=== PATIENT | female | born 1965 | race Two or more races ===

== ENCOUNTER 2017-07-23 21:01 | Emergency (ER) | payer SELFPAY ==
[2017-07-23] MEDS ORDERED: ONDANSETRON 4 MG TAB.RAPDIS PO ONE (21:08)
[2017-07-23] MEDS ORDERED: ONDANSETRON HCL INJ/PF 4 MG/2 ML SDV IV ONE (21:51)
[2017-07-23] MEDS ORDERED: NORMAL SALINE 1000 ML 1,000 ML IV ONE (21:51)
[2017-07-23 22:43] LABS: ABSOLUTE BASOPHILS # (AUTO) 0.1 10^3/uL (0.0-0.2); ABSOLUTE EOSINOPHILS # (AUTO) 0.5 10^3/uL (0.0-0.6); ABSOLUTE MONOCYTES (AUTO) 0.9 10^3/uL (0.1-1.4); ABSOLUTE NEUT (AUTO) 4.6 10^3/uL (1.7-8.2); BASOPHILS % (AUTO) 0.6 % (0-2); EOSINOPHILS % (AUTO) 4.7 % (0-6); HEMATOCRIT 41.1 % (36.0-47.0); HEMOGLOBIN 13.9 g/dL (12.0-15.5); LYMPHOCYTES % (AUTO) 45.2 % (13-45); MEAN CORPUSCULAR HEMOGLOBIN 28.8 pg (27.0-33.4); MEAN CORPUSCULAR HGB CONC 33.9 g/dL (32.0-36.0); MEAN CORPUSCULAR VOLUME 85 fl (80-97); MONOCYTES % (AUTO) 7.8 % (3-13); PLATELET COUNT 261 10^3/uL (150-450); RED BLOOD COUNT 4.83 10^6/uL (3.72-5.28); RED CELL DISTRIBUTION WIDTH 13.2 % (11.5-14.0); SEGMENTED NEUTROPHILS % (AUTO) 41.7 % (42-78); TOTAL CELLS COUNTED % (AUTO) 100 %
[2017-07-23 22:50] LABS: ALANINE AMINOTRANSFERASE 34 U/L (9-52); ALBUMIN 4.3 g/dL (3.5-5.0); ALKALINE PHOSPHATASE 90 U/L (38-126); ANION GAP 10 (5-19); ASPARTATE AMINO TRANSFERASE 22 U/L (14-36); BILIRUBIN,DIRECT 0.3 mg/dL (0.0-0.4); BILIRUBIN,TOTAL 0.5 mg/dL (0.2-1.3); BLOOD UREA NITROGEN 24 mg/dL (7-20); CALCIUM 9.3 mg/dL (8.4-10.2); CARBON DIOXIDE 23 mmol/L (22-30); CHLORIDE 108 mmol/L (98-107); GLUCOSE 90 mg/dL (75-110); LIPASE 55.6 U/L (23-300); POTASSIUM 4.3 mmol/L (3.6-5.0); SODIUM 141.2 mmol/L (137-145); TOTAL PROTEIN 6.7 g/dL (6.3-8.2)
[2017-07-23 22:58] LABS: APPEARANCE,URINE CLEAR; BILIRUBIN,URINE NEGATIVE (NEGATIVE); COLOR,URINE YELLOW; GLUCOSE, URINE NEGATIVE (NEGATIVE); KETONES,URINE NEGATIVE (NEGATIVE); LEUKOCYTE ESTERASE,URINE NEGATIVE (NEGATIVE); NITRITE,URINE NEGATIVE (NEGATIVE); PROTEIN,URINE NEGATIVE (NEGATIVE); URINE SPECIFIC GRAVITY 1.028
[2017-07-23] MEDS ORDERED: ONDANSETRON ODT 4 MG TAB (6 TAB/ER DISP) PO PRN (23:09)
[2017-07-23] MEDS ORDERED: METOCLOPRAMIDE HCL INJ/PF 10 MG/2 ML SDV IV ONE (23:09)
--- NOTE | 2017-07-23 23:11 | ER Document Report ---
ED General - General Chief Complaint: Nausea/Vomiting/Diarrhea Stated Complaint: BODY PAIN,VOMITING Time Seen by Provider: 07/23/17 21:50 Notes: Patient is a 51-year-old female with medical history as recorded who presents with 24 hours of nausea, vomiting and diarrhea. Patient states that her symptoms started abruptly and have been ongoing since that time. She notes a mild, generalized, cramping abdominal pain that is intermittent, usually most intense prior to an episode of vomiting. She has not tried anything to improve her symptoms at home. She states any attempt at taking oral intake worsens her symptoms. She is uncertain of whether or not she has had sick contacts. She denies a history of similar symptoms in the past. She has not seen her primary doctor regarding today's concerns. She states that her main concern this as she has been unable to tolerate even water at home prompting concerns of dehydration. She denies any shortness of breath, lightheadedness, chest pain or focal abdominal pain. She does report that she has had a mild cough. TRAVEL OUTSIDE OF THE [place] IN LAST 30 DAYS: No - Related Data Allergies/Adverse Reactions: cephalexin monohydrate [From Keflex] Allergy (Intermediate, Verified 06/24/12 02 :51) Rash, swelling Past Medical History - General Information source: Patient - Social History Smoking Status: Former Smoker Frequency of alcohol use: None Lives with: Alone Family History: Reviewed & Not Pertinent Patient has suicidal ideation: No Patient has homicidal ideation: No Pulmonary Medical History: Reports: Hx Asthma, Hx Bronchitis, Hx Pneumonia Neurological Medical History: Reports: Hx Migraine Renal/ Medical History: Denies: Hx Peritoneal Dialysis Malignancy Medical History: Reports: Hx Cervical Cancer - abnormal cells Musculoskeltal Medical History: Reports Hx Arthritis - degenerative arthritis, Reports Hx Musculoskeletal Deformity, Reports Hx Musculoskeletal Trauma Psychiatric Medical History: Reports: Hx Bipolar Disorder, Hx Depression Past Surgical History: Reports: Hx Appendectomy, Hx Cholecystectomy, Hx Hysterectomy, Hx Orthopedic Surgery - right knee; back; left shoulder, Hx Tonsillectomy - Immunizations Immunizations up to date: Yes Hx Diphtheria, Pertussis, Tetanus Vaccination: Yes Hx Pneumococcal Vaccination: 06/24/12 Review of Systems - Review of Systems Notes: Constitutional: Positive for fever. HENT: Negative for sore throat. Eyes: Negative for visual changes. Cardiovascular: Negative for chest pain. Respiratory: Negative for shortness of breath. Positive for cough Gastrointestinal: Positive for abdominal cramping, vomiting and diarrhea Genitourinary: Negative for dysuria. Musculoskeletal: Negative for back pain. Skin: Negative for rash. Neurological: Negative for headaches, weakness or numbness. 10 point ROS negative except as marked above and in HPI. Physical Exam - Vital signs Vitals: Temp Pulse Resp BP Pulse Ox 98.1 F 82 19 109/66 97 07/23/17 21:16 07/23/17 21:16 07/23/17 21:16 07/23/17 21:16 07/23/17 21:16 Interpretation: Normal Notes: PHYSICAL EXAMINATION: GENERAL: Appears somewhat uncomfortable but in no acute distress.. HEAD: Atraumatic, normocephalic. EYES: Pupils equal round and reactive to light, extraocular movements intact, sclera anicteric, conjunctiva are normal. ENT: nares patent, oropharynx clear without exudates. Dry mucous membranes. NECK: Normal range of motion, supple without lymphadenopathy LUNGS: Breath sounds clear to auscultation bilaterally and equal. No wheezes rales or rhonchi. HEART: Regular rate and rhythm without murmurs ABDOMEN: Soft, nontender, normoactive bowel sounds. No guarding, no rebound. No masses appreciated. EXTREMITIES: Normal range of motion, no pitting or edema. No cyanosis. NEUROLOGICAL: No focal neurological deficits. Moves all extremities spontaneously and on command. PSYCH: Normal mood, normal affect. SKIN: Warm, Dry, normal turgor, no rashes or lesions noted. Course - Re-evaluation Re-evalutation: 07/23/17 23:10 Presentation of an overall well-appearing patient in no acute distress with complaints of nausea, vomiting, diarrhea. This is consistent with likely viral gastroenteritis. Patient has no abdominal tenderness on exam and specifically no tenderness in the RLQ, LLQ, RUQ. Patient is already status post cholecystectomy and appendectomy. Overall well hydrated on exam. Able to tolerate oral intake here in the emergency department. Low clinical suspicion for any acute life-threatening etiology based on exam and history including SBO , mesenteric ischemia, nephrolithiasis, or pylonephritis. CMP without evidence of acute hepatitis or significant dehydration. At this time will discharge with return precautions and follow-up recommendations. Verbal discharge instructions given a the bedside and opportunity for questions given. Medication warnings reviewed. Patient is in agreement with this plan and has verbalized understanding of return precautions and the need for primary care follow-up in the next 24-72 hours. - Vital Signs Vital signs: Temp Pulse Resp BP Pulse Ox 98.0 F 82 15 104/66 98 07/24/17 00:30 07/23/17 21:16 07/24/17 00:28 07/24/17 00:28 07/24/17 00:28 - Laboratory Result Diagrams: 07/23/17 22:03 07/23/17 22:03 Laboratory results interpreted by me: 07/23/17 07/23/17 07/23/17 22:03 22:03 22:47 WBC 11.0 H Seg Neutrophils % 41.7 L Lymphocytes % 45.2 H Absolute Lymphocytes 5.0 H Chloride 108 H BUN 24 H Urine Blood MODERATE H Urine Urobilinogen 2.0 H Discharge - Discharge Clinical Impression: Nausea vomiting and diarrhea, Dehydration, Abdominal cramping Condition: Good Disposition: HOME, SELF-CARE Additional Instructions: Your symptoms are likely due to a viral illness and should resolve in the next several days. You can take [id number] loperamide also known as Imodium as needed for diarrhea per box instructions. Continue to stay hydrated with plenty of solution such as Gatorade or Pedialyte. You are being prescribed Zofran to take as needed for nausea and vomiting. Please return if you develop severe abdominal pain, pass out, become unable to tolerate any oral fluids for 12 more hours, or any other symptoms that are concerning to you. Forms: Return to Work
[2017-07-24 00:56] VITALS: BP 104/66
== END 2017-07-24 00:30 | disposition home or self-care (01) ==
LOC: ER 21:01
DX: R11.2 Nausea with vomiting, unspecified (principal); R19.7 Diarrhea, unspecified; E86.0 Dehydration; R10.84 Generalized abdominal pain; Z88.3 Allergy status to other anti-infective agents; Z87.891 Personal history of nicotine dependence; Z90.49 Acquired absence of other specified parts of digestive tract; Z90.710 Acquired absence of both cervix and uterus; Z85.41 Personal history of malignant neoplasm of cervix uteri
CPT/HCPCS: 99284; 96361; 96374; 96375; 36415; 83690; 85025; 80053; 81001; J2765; J2405; J7030

== ENCOUNTER 2017-08-22 12:21 | Emergency (ER) | payer SELFPAY ==
--- NOTE | 2017-08-22 13:08 | ER Document Report ---
HPI - HPI Patient complains to provider of: fell Quality of pain: Throbbing Pain Level: 4 Context: 51 yo female tripped over dogs and fell onto right knee which sanjana her right hip and low back at 8 am. NO radicuopathy. Associated Symptoms: None Exacerbated by: Movement Relieved by: Denies - ROS ROS below otherwise negative: Yes Systems Reviewed and Negative: Yes All other systems reviewed and negative - REPRODUCTIVE Reproductive: DENIES: : Past Medical History - General Information source: Patient - Social History Smoking Status: Former Smoker Frequency of alcohol use: None Drug Abuse: None Lives with: Family Family History: Reviewed & Not Pertinent Pulmonary Medical History: Reports: Hx Asthma, Hx Bronchitis, Hx Pneumonia Neurological Medical History: Reports: Hx Migraine Renal/ Medical History: Denies: Hx Peritoneal Dialysis Malignancy Medical History: Reports: Hx Cervical Cancer - abnormal cells Musculoskeltal Medical History: Reports Hx Arthritis - degenerative arthritis, Reports Hx Musculoskeletal Deformity, Reports Hx Musculoskeletal Trauma Psychiatric Medical History: Reports: Hx Bipolar Disorder, Hx Depression Past Surgical History: Reports: Hx Appendectomy, Hx Cholecystectomy, Hx Hysterectomy, Hx Orthopedic Surgery - right knee; back; left shoulder, Hx Tonsillectomy - Immunizations Immunizations up to date: Yes Hx Diphtheria, Pertussis, Tetanus Vaccination: Yes Hx Pneumococcal Vaccination: 06/24/12 Vertical Provider Document - CONSTITUTIONAL Agree With Documented VS: Yes Exam Limitations: No Limitations General Appearance: Mild Distress - INFECTION CONTROL TRAVEL OUTSIDE OF THE [place] IN LAST 30 DAYS: No - HEENT HEENT: Normocephalic - NECK Neck: Supple - BACK Back: Normal Inspection - tender right scarum and right lateral hip - MUSCULOSKELETAL/EXTREMETIES Musculoskeletal/Extremeties: Tender - see above Course - Re-evaluation Re-evalutation: 08/22/17 14:35 xray negative per rad - Vital Signs Vital signs: Temp Pulse Resp BP Pulse Ox 98.6 F 65 18 118/81 97 08/22/17 12:46 08/22/17 12:46 08/22/17 12:46 08/22/17 12:46 08/22/17 12:46 Discharge - Discharge Clinical Impression: right hip pain after fall Condition: Good Disposition: HOME, SELF-CARE Instructions: Contusion ([facility]), Ibuprofen (General) ([facility]), Low Back Pain ([facility]), Oral Narcotic Medication ([facility]) Additional Instructions: use the cane motrin hydrocodone for pain warm compress crutches Prescriptions: Hydrocodone Bit/Acetaminophen [Hydrocodon-Acetaminophen 5-325] 1 each PO Q4HP PRN #15 tablet PRN Reason: Ibuprofen [Motrin 800 mg Tablet] 800 mg PO Q8HP PRN #30 tablet PRN Reason: Forms: Return to Work Referrals: FERNIE MOORE MD [ACTIVE STAFF] - Follow up as needed
[2017-08-22] MEDS ORDERED: IBUPROFEN 800 MG TABLET PO ONE (13:24)
[2017-08-22] MEDS ORDERED: ONDANSETRON 4 MG TAB.RAPDIS PO ONE (13:25)
[2017-08-22] MEDS ORDERED: HYDROCODONE/ACETAMINOPHEN 5-325 MG TABLET PO ONE (13:25)
--- NOTE | 2017-08-22 14:22 | RADIOLOGY REPORT (SQ) ---
EXAM DESCRIPTION: HIP RIGHT AP/LATERAL COMPLETED DATE/TIME: 08/22/2017 2:11 pm REASON FOR STUDY: fall COMPARISON: 02/01/2012 NUMBER OF VIEWS: Two views. TECHNIQUE: AP pelvis and additional frog-leg view of the right hip. LIMITATIONS: None. FINDINGS: MINERALIZATION: Normal. RIGHT HIP: No fracture or dislocation. No worrisome bone lesions. LEFT HIP: No fracture or dislocation. No worrisome bone lesions. PUBIS AND ISCHIUM: No fracture. PELVIS: No fracture. SACRUM: No fracture or dislocation. No worrisome bone lesions. LOWER LUMBAR SPINE: No fracture or dislocation. No worrisome bone lesions. No significant disc disea se. SOFT TISSUES: No findings. OTHER: No other significant finding. IMPRESSION: NO RADIOGRAPHIC EVIDENCE OF ACUTE INJURY. TECHNICAL DOCUMENTATION: JOB ID: [id number] [employer]- All Rights Reserved Reading location - IP/workstation name: [email or web address]
[2017-08-22 14:55] VITALS: BP 114/84
== END 2017-08-22 15:00 | disposition home or self-care (01) ==
LOC: ER 12:21
DX: M25.551 Pain in right hip (principal); M54.5 Low back pain; W01.0XXA Fall on same level from slipping, tripping and stumbling without subsequent striking against object, initial encounter; Z90.49 Acquired absence of other specified parts of digestive tract; Z90.710 Acquired absence of both cervix and uterus
CPT/HCPCS: 99283; 73502; S0119

== ENCOUNTER 2017-09-29 14:33 | Emergency (ER) | payer SELFPAY ==
[2017-09-29 14:43] VITALS: BP 104/77
[2017-09-29] MEDS ORDERED: DICYCLOMINE HCL 20 MG TABLET PO ONE (15:37)
--- NOTE | 2017-09-29 15:38 | ER Document Report ---
ED Medical Screen (RME) - General Chief Complaint: Abdominal Pain Stated Complaint: VAGINAL ITCHING Time Seen by Provider: 09/29/17 15:34 TRAVEL OUTSIDE OF THE [place] IN LAST 30 DAYS: No - HPI Notes: 09/29/17 15:37 Abdominal cramping vaginal itching - Related Data Allergies/Adverse Reactions: cephalexin monohydrate [From Keflex] Allergy (Intermediate, Verified 09/29/17 15 :24) Rash, swelling Past Medical History - Social History Chew tobacco use (# tins/day): No Frequency of alcohol use: None Drug Abuse: None Pulmonary Medical History: Reports: Hx Asthma, Hx Bronchitis, Hx Pneumonia Neurological Medical History: Reports: Hx Migraine Renal/ Medical History: Denies: Hx Peritoneal Dialysis Malignancy Medical History: Reports: Hx Cervical Cancer - abnormal cells Musculoskeltal Medical History: Reports Hx Arthritis - degenerative arthritis, Reports Hx Musculoskeletal Deformity, Reports Hx Musculoskeletal Trauma Psychiatric Medical History: Reports: Hx Bipolar Disorder, Hx Depression Past Surgical History: Reports: Hx Appendectomy, Hx Cholecystectomy, Hx Hysterectomy, Hx Orthopedic Surgery - right knee; back; left shoulder, Hx Tonsillectomy - Immunizations Immunizations up to date: Yes Hx Diphtheria, Pertussis, Tetanus Vaccination: Yes Review of Systems - Review of Systems Gastrointestinal: Abdominal pain Genitourinary: Other - Vaginal itching Physical Exam - Vital signs Vitals: Temp Pulse Resp BP Pulse Ox 98.8 F 81 20 104/77 98 09/29/17 14:41 09/29/17 14:41 09/29/17 14:41 09/29/17 14:41 09/29/17 14:41 - General General appearance: Appears well In distress: None - Abdominal Inspection: Normal Distension: No distension Bowel sounds: Normal Tenderness: Nontender Course - Vital Signs Vital signs: Temp Pulse Resp BP Pulse Ox 98.8 F 81 20 104/77 98 09/29/17 14:41 09/29/17 14:41 09/29/17 14:41 09/29/17 14:41 09/29/17 14:41
[2017-09-29 17:02] LABS: APPEARANCE,URINE SLIGHTLY-CLOUDY; BILIRUBIN,URINE NEGATIVE (NEGATIVE); COLOR,URINE YELLOW; GLUCOSE, URINE NEGATIVE (NEGATIVE); KETONES,URINE NEGATIVE (NEGATIVE); LEUKOCYTE ESTERASE,URINE TRACE (NEGATIVE); NITRITE,URINE NEGATIVE (NEGATIVE); PROTEIN,URINE NEGATIVE (NEGATIVE); URINE SPECIFIC GRAVITY 1.025
[2017-09-29 17:05] LABS: ALANINE AMINOTRANSFERASE 28 U/L (9-52); ALBUMIN 4.4 g/dL (3.5-5.0); ALKALINE PHOSPHATASE 89 U/L (38-126); ANION GAP 10 (5-19); ASPARTATE AMINO TRANSFERASE 19 U/L (14-36); BILIRUBIN,DIRECT 0.2 mg/dL (0.0-0.4); BILIRUBIN,TOTAL 0.4 mg/dL (0.2-1.3); BLOOD UREA NITROGEN 21 mg/dL (7-20); CALCIUM 9.3 mg/dL (8.4-10.2); CARBON DIOXIDE 27 mmol/L (22-30); CHLORIDE 109 mmol/L (98-107); GLUCOSE 87 mg/dL (75-110); POTASSIUM 4.5 mmol/L (3.6-5.0); SODIUM 146.4 mmol/L (137-145); TOTAL PROTEIN 7.4 g/dL (6.3-8.2)
[2017-09-29 18:20] LABS: T.VAGINALIS (WET MOUNT) NO TRICHOMONAS SEEN; WBCS (WET MOUNT) RARE WBCS SEEN; YEAST (WET MOUNT) NO YEAST SEEN
[2017-09-29] MEDS ORDERED: SULFAMETHOXAZOLE/TRIMETHOPRIM 800-160 MG TABLET PO ONE (18:43)
[2017-09-29] MEDS ORDERED: PHENAZOPYRIDINE HCL 200 MG TABLET PO ONE (18:43)
--- NOTE | 2017-09-29 18:43 | ER Document Report ---
HPI - HPI Pain Level: 5 Context: Patient is a 51-year-old female presents emergency room with a chief complaint of urinary urgency, frequency and itching. Patient states that she denies any vaginal pain, vaginal discharge or labial irritation. She denies any suprapubic pain. Denies any fevers or chills, flank pain or back pain. - REPRODUCTIVE Reproductive: DENIES: : - DERM Skin Color: Normal Past Medical History - Social History Smoking Status: Current Some Day Smoker Chew tobacco use (# tins/day): No Frequency of alcohol use: None Drug Abuse: None Family History: Reviewed & Not Pertinent Patient has suicidal ideation: No Patient has homicidal ideation: No Pulmonary Medical History: Reports: Hx Asthma, Hx Bronchitis, Hx Pneumonia Neurological Medical History: Reports: Hx Migraine Renal/ Medical History: Denies: Hx Peritoneal Dialysis Malignancy Medical History: Reports: Hx Cervical Cancer - abnormal cells Musculoskeltal Medical History: Reports Hx Arthritis - degenerative arthritis, Reports Hx Musculoskeletal Deformity, Reports Hx Musculoskeletal Trauma Psychiatric Medical History: Reports: Hx Bipolar Disorder, Hx Depression Past Surgical History: Reports: Hx Appendectomy, Hx Cholecystectomy, Hx Hysterectomy, Hx Orthopedic Surgery - right knee; back; left shoulder, Hx Tonsillectomy - Immunizations Immunizations up to date: Yes Hx Diphtheria, Pertussis, Tetanus Vaccination: Yes Hx Pneumococcal Vaccination: 06/24/12 Vertical Provider Document - CONSTITUTIONAL Agree With Documented VS: Yes Notes: PHYSICAL EXAM GENERAL: Alert, interacts well. LUNGS: Clear to auscultation bilaterally, no wheezes, rales, or rhonchi. No respiratory distress. HEART: Regular rate and rhythm. No murmurs, gallops, or rubs. ABDOMEN: Soft, nondistended, nontender. No guarding, rebound, or rigidity.. Bowel sounds present in all 4 quadrants. FEMALE : Normal external exam. No evidence of lesions, lacerations, bruising or vesicles. Speculum exam normal cervix closed. No evidence of vaginal discharge with odor. No evidence of lesions. No vaginal bleeding. Bimanual exam normal no cervical motion tenderness. No adnexal mass or adnexal tenderness. EXTREMITIES: Moves all 4 extremities spontaneously. No edema, radial and dorsalis pedis pulses 2/4 bilaterally. No cyanosis. NEUROLOGICAL: Alert and oriented x4. Normal speech. PSYCH: Normal affect, normal mood. SKIN: Warm, dry, normal turgor. No rashes or lesions noted. - INFECTION CONTROL TRAVEL OUTSIDE OF THE [place] IN LAST 30 DAYS: No Course - Re-evaluation Re-evalutation: 09/29/17 18:42 Patient presents with symptoms consistent with an acute cystitis. Vitals wnl. No history of fever, flank pain, or constitution symptoms to suggest ascending infection at this time. Patient is well in appearance, tolerating oral intake without difficulty. No focal abdominal tenderness to suggest acute appendicitis , biliary pathology, acute pancreatitis, tubo-ovarian abscesses, or pelvic inflammatory disease. Patient will be started on antibiotics at this time. A culture has been sent. They will be discharged with return precautions and follow-up recommendations. - Vital Signs Vital signs: Temp Pulse Resp BP Pulse Ox 98.8 F 81 20 104/77 98 09/29/17 14:41 09/29/17 14:41 09/29/17 14:41 09/29/17 14:41 09/29/17 14:41 - Laboratory Result Diagrams: 09/29/17 16:15 Laboratory results interpreted by me: 09/29/17 09/29/17 16:15 16:15 Sodium 146.4 H Chloride 109 H BUN 21 H Urine Blood MODERATE H Urine Urobilinogen 2.0 H Ur Leukocyte Esterase TRACE H Discharge - Discharge Clinical Impression: UTI (urinary tract infection) Condition: Good Disposition: HOME, SELF-CARE Additional Instructions: Your urine shows findings consistent with a urinary tract infection. Please take all the antibiotics as directed even if your symptoms have improved. Please follow-up with your primary care physician as needed. Return to emergency room if you develop fever >101F, persistent vomiting, become lethargic , have severe pain in your sides, or any other symptoms that are concerning to you. Prescriptions: Phenazopyridine HCl [Pyridium 200 mg Tablet] 200 mg PO TID #15 tablet Sulfamethoxazole/Trimethoprim [Bactrim Ds Tablet] 1 each PO BID #6 tablet Forms: Return to Work
[2017-09-29 19:48] LABS: CHLAM PCR NOT DETECTED (NOT DETECT); GON PCR NOT DETECTED (NOT DETECT)
== END 2017-09-29 18:55 | disposition home or self-care (01) ==
LOC: ER 14:33
DX: N39.0 Urinary tract infection, site not specified (principal); R39.15 Urgency of urination; R35.0 Frequency of micturition; F17.200 Nicotine dependence, unspecified, uncomplicated; J45.909 Unspecified asthma, uncomplicated
CPT/HCPCS: 99283; 36415; 87210; 84703; 80053; 81001; 87491; 87591; J3490 ×2

== ENCOUNTER 2019-09-27 14:48 | Emergency (ER) | payer SELFPAY ==
[2019-09-27 16:57] VITALS: BP 132/81
[2019-09-27] MEDS ORDERED: CLINDAMYCIN HCL 150 MG CAPSULE PO ONE (17:01)
[2019-09-27] MEDS ORDERED: PREDNISONE 20 MG TABLET PO ONE (17:01)
--- NOTE | 2019-09-27 17:07 | ER Document Report ---
HPI - HPI Patient complains to provider of: Skin rash Time Seen by Provider: 09/27/19 16:34 Onset: Yesterday Onset/Duration: Worse Quality of pain: Achy Pain Level: 2 Context: Patient states that she recently bought a new bed frame and put it up in her house. Patient states that yesterday she woke up after using the bed frame for the first night and had multiple zacarias on her that are suspicious for bedbug bites. Patient states that she has been continually scratching and she has expanding redness around some of the lesions. Patient reports nausea and diarrhea. Patient denies any fever. She has started to treat her home and has called an casual shoe inspector. Associated Symptoms: Nausea, Other - Insect bites. denies: Fever, Vomiting Exacerbated by: Denies Relieved by: Denies Similar symptoms previously: No Recently seen / treated by doctor: No - ROS ROS below otherwise negative: Yes Systems Reviewed and Negative: Yes All other systems reviewed and negative - CONSTITUTIONAL Constitutional: DENIES: Fever, Chills - NEURO Neurology: DENIES: Headache - RESPIRATORY Respiratory: DENIES: Coughing - GASTROINTESTINAL Gastrointestinal: REPORTS: Nausea, Diarrhea. DENIES: Patient vomiting - REPRODUCTIVE Reproductive: DENIES: : - MUSCULOSKELETAL Musculoskeletal: REPORTS: Extremity pain - DERM Skin Color: Erythema Skin Problems: Rash Past Medical History - General Information source: Patient - Social History Smoking Status: Former Smoker Frequency of alcohol use: Occasional Drug Abuse: None Occupation: None Family History: Reviewed & Not Pertinent Patient has homicidal ideation: No Pulmonary Medical History: Reports: Hx Asthma, Hx Bronchitis, Hx Pneumonia Neurological Medical History: Reports: Hx Migraine Renal/ Medical History: Denies: Hx Peritoneal Dialysis Malignancy Medical History: Reports: Hx Cervical Cancer - abnormal cells Musculoskeletal Medical History: Reports Hx Arthritis - degenerative arthritis, Reports Hx Musculoskeletal Deformity, Reports Hx Musculoskeletal Trauma Psychiatric Medical History: Reports: Hx Bipolar Disorder, Hx Depression Past Surgical History: Reports: Hx Appendectomy, Hx Cholecystectomy, Hx Hysterectomy, Hx Orthopedic Surgery - right knee; back; left shoulder, Hx Tonsillectomy - Immunizations Immunizations up to date: Yes Hx Diphtheria, Pertussis, Tetanus Vaccination: Yes Hx Pneumococcal Vaccination: 06/24/12 Vertical Provider Document - CONSTITUTIONAL Agree With Documented VS: Yes Exam Limitations: No Limitations General Appearance: WD/WN, No Apparent Distress - INFECTION CONTROL TRAVEL OUTSIDE OF THE [place] IN LAST 30 DAYS: No - HEENT HEENT: Atraumatic, Normocephalic - NECK Neck: Normal Inspection, Supple. negative: Lymphadenopathy-Left, Lymphadenopathy-Right - RESPIRATORY Respiratory: Breath Sounds Normal, No Respiratory Distress - CARDIOVASCULAR Cardiovascular: Regular Rate, Regular Rhythm - MUSCULOSKELETAL/EXTREMETIES Musculoskeletal/Extremeties: MAEW, FROM - NEURO Level of Consciousness: Awake, Alert, Appropriate Motor/Sensory: No Motor Deficit - DERM Integumentary: Warm, Rash - Multiple erythematous papular lesions to trunk and extremities, patient with erythema surrounding lesions to medial left elbow Course - Re-evaluation Re-evalutation: 09/27/19 17:02 Patient with multiple erythematous lesions distributed to trunk and extremities that do look suspicious for bedbug bites. Patient has areas to the left upper arm with surrounding erythema worrisome for developing cellulitis. Patient continually scratching at her skin. Patient encouraged to minimize traumatizing the skin to prevent potential worsening of the cellulitis. - Vital Signs Vital signs: Temp Pulse Resp BP Pulse Ox 99.1 F 82 18 132/81 H 98 09/27/19 16:43 09/27/19 16:43 09/27/19 16:43 09/27/19 16:43 09/27/19 16:43 Discharge - Discharge Clinical Impression: Insect bite Qualifiers: Encounter type: initial encounter Site of insect bite: unspecified site Qualified Code(s): W57.XXXA - Bitten or stung by nonvenomous insect and other nonvenomous arthropods, initial encounter Cellulitis Qualifiers: Site of cellulitis: extremity Site of cellulitis of extremity: upper extremity Laterality: left Qualified Code(s): L03.114 - Cellulitis of left upper limb Condition: Stable Disposition: HOME, SELF-CARE Instructions: Cellulitis ([facility]), Clindamycin ([facility]), Swollen Insect Bite or Sting ([facility]) Additional Instructions: Return immediately for any new or worsening symptoms Followup with your primary care provider, call tomorrow to make a followup appointment Avoid scratching at the skin Prescriptions: Clindamycin HCl 300 mg PO QID #28 capsule Prednisone [Deltasone 20 mg Tablet] 3 tab PO DAILY 4 Days #12 tablet Hydroxyzine Pamoate [Vistaril 50 mg Capsule] 50 mg PO TID PRN #15 capsule PRN Reason: Referrals: [facility] [Provider Group] - Follow up as needed
== END 2019-09-27 17:46 | disposition home or self-care (01) ==
LOC: ER 14:48
DX: L03.114 Cellulitis of left upper limb (principal); T14.8XXA Other injury of unspecified body region, initial encounter; W57.XXXA Bitten or stung by nonvenomous insect and other nonvenomous arthropods, initial encounter; R11.0 Nausea; R19.7 Diarrhea, unspecified; J45.909 Unspecified asthma, uncomplicated; Z87.891 Personal history of nicotine dependence
CPT/HCPCS: 99282; J7512

== ENCOUNTER 2019-10-24 11:28 | Emergency (ER) | payer SELFPAY ==
[2019-10-24 11:34] VITALS: BP 122/84
--- NOTE | 2019-10-24 14:09 | ER Document Report ---
ED Fever - General Chief Complaint: Fever Stated Complaint: FEVER,COUGH,BODYACHES,EAR PAIN Time Seen by Provider: 10/24/19 13:39 Mode of Arrival: Ambulatory Information source: Patient Notes: 53-year-old female past medical history significant for asthma presents to the emergency room complaining of a cough x5 days. States she had diarrhea on Wednesday that his symptoms resolved. Started complaining of right ear pain that came on suddenly today at work. States she had a negative cover test in June. A positive flu in July and a negative COVID in July. States she been running a low-grade fever. She denies any recent travel. No known COVID-19 exposure. Has been taking ibuprofen along with [id number] Tylenol Cold and flu without relief. TRAVEL OUTSIDE OF THE [place] IN LAST 30 DAYS: No - Related Data Allergies/Adverse Reactions: cephalexin monohydrate [From Keflex] Allergy (Intermediate, Verified 10/24/19 14:11) Rash, swelling Past Medical History - General Information source: Patient - Social History Smoking Status: Never Smoker Frequency of alcohol use: None Drug Abuse: None Family History: Reviewed & Not Pertinent Pulmonary Medical History: Reports: Hx Asthma, Hx Bronchitis, Hx Pneumonia Neurological Medical History: Reports: Hx Migraine Renal/ Medical History: Denies: Hx Peritoneal Dialysis Malignancy Medical History: Reports: Hx Cervical Cancer - abnormal cells Musculoskeletal Medical History: Reports Hx Arthritis - degenerative arthritis, Reports Hx Musculoskeletal Deformity, Reports Hx Musculoskeletal Trauma Psychiatric Medical History: Reports: Hx Bipolar Disorder, Hx Depression Past Surgical History: Reports: Hx Appendectomy, Hx Cholecystectomy, Hx Hysterectomy, Hx Orthopedic Surgery - right knee; back; left shoulder, Hx Tonsillectomy - Immunizations Immunizations up to date: Yes Hx Diphtheria, Pertussis, Tetanus Vaccination: Yes Hx Pneumococcal Vaccination: 06/24/12 Review of Systems - Review of Systems Constitutional: Fever EENT: Ear pain Cardiovascular: No symptoms reported Respiratory: Cough. denies: Short of breath, Wheezing Gastrointestinal: Diarrhea. denies: Abdominal pain, Nausea, Vomiting Genitourinary: No symptoms reported Musculoskeletal: No symptoms reported Skin: No symptoms reported Neurological/Psychological: No symptoms reported -: Yes All other systems reviewed and negative Physical Exam - Vital signs Vitals: Temp Pulse Resp BP Pulse Ox 98.2 F 85 20 122/84 99 10/24/19 11:33 10/24/19 11:33 10/24/19 11:33 10/24/19 11:33 10/24/19 11:33 - General General appearance: Appears well, Alert In distress: Mild - HEENT Head: Normocephalic Eyes: Normal Conjunctiva: Normal Cornea: Normal Extraocular movements intact: Yes External canal: Cerumen impaction - Right ear with severe cerumen impaction. Tympanic membrane: Loss of landmarks Hearing loss: No: Left, Right Sinus: Normal Nasal: Normal Pharynx: Normal Neck: Normal - Respiratory Respiratory status: No respiratory distress Chest status: Nontender Breath sounds: Normal Chest palpation: Normal - Cardiovascular Rhythm: Regular Heart sounds: Normal auscultation Murmur: No - Neurological Neuro grossly intact: Yes Cognition: Normal Orientation: AAOx4 Shane Coma Scale Eye Opening: Spontaneous [place] Coma Scale Verbal: Oriented [place] Coma Scale Motor: Obeys Commands [place] Coma Scale Total: 15 Speech: Normal Motor strength normal: LUE, RUE, LLE, RLE Sensory: Normal - Skin Skin Temperature: Warm Skin Moisture: Dry Skin Color: Normal Course - Re-evaluation Re-evalutation: 10/24/19 15:15 Was notified by nursing staff that patient was requesting to be seen by physician. Patient stated she did not feel that she was getting good care. Patient stated that "I told her that nothing could be done". Which is not what was discussed. Discussed with patient that we will get a chest x-ray for her cough, will attempt to clean her ears but was concerned about the thickness of the wax and that we might not be able to get much out. Did discuss case with Dr. Mata who recommended that we have one the nurses attempt to flush out the patient's ear. Patient also refused her chest x-ray. Patient would not give a reason for refusing her chest x-ray. Patient then refused to allow the nurse to attempt to clean the wax out of her ear. Went to discuss AMA with patient and she was requesting to leave AGAINST MEDICAL ADVICE. Patient refused to allow me to talk to her. She again stated "you told me you cannot do anything for me" when attempting to re-explain to the patient what I initially had discussed with her about a chest x-ray and cleaning her ears she said "I do not want to hear it and she yelled at me demanding that I leave her room" was unable to discuss AMA risks with patient. Patient did sign AMA forms although she was not counseled by the provider. She was counseled that she can return anytime to complete her treatment. 10/25/19 01:00 - Vital Signs Vital signs: Temp Pulse Resp BP Pulse Ox 98.2 F 85 20 122/84 99 10/24/19 11:33 10/24/19 11:33 10/24/19 11:33 10/24/19 11:33 10/24/19 11:33 Discharge - Discharge Clinical Impression: Right ear pain, Cough, Right ear impacted cerumen, Left against medical advice Condition: Stable Disposition: AGAINST MEDICAL ADVICE
== END 2019-10-24 15:30 | disposition left against medical advice (07) ==
LOC: ER 11:28
DX: R05 Cough (principal); H61.21 Impacted cerumen, right ear; H92.01 Otalgia, right ear; R50.9 Fever, unspecified; R19.7 Diarrhea, unspecified; J45.909 Unspecified asthma, uncomplicated; Z87.01 Personal history of pneumonia (recurrent); Z88.1 Allergy status to other antibiotic agents; Z53.20 Procedure and treatment not carried out because of patient's decision for unspecified reasons
CPT/HCPCS: 99281

== ENCOUNTER 2019-12-08 13:53 | Emergency (ER) | payer SELFPAY ==
--- NOTE | 2019-12-08 15:24 | ER Document Report ---
ED Medical Screen (RME) - General Chief Complaint: Cough Stated Complaint: HEADACHE/DIARRHEA/SORE THROAT/COUGH Time Seen by Provider: 12/08/19 15:18 Mode of Arrival: Ambulatory Information source: Patient Notes: HPI; 53-year-old female presents to the emergency room complaining of sinus headache with nasal congestion and cough. Symptoms started 7 days ago. Got worse today. Started with nausea, sore throat, diarrhea yesterday. 2 episodes yesterday 3 episodes today. States feels worse today. She denies any recent travel. No known COVID-19 exposure however a family member tested positive that has had contact with other family members that she is also had contact with. PE: Alert and oriented x3. Mild distress noted. Lungs: Scattered rhonchi and wheezes. No rales. Heart: Regular rate rhythm without murmurs, rubs, gallops. I have greeted and performed a rapid initial assessment of this patient. A comprehensive ED assessment and evaluation of the patient, analysis of test results and completion of the medical decision making process will be conducted by additional ED providers. I have specifically instructed the patient or family members with the patient to immediately return to any nursing staff should anything change in the patient's condition or with their chief complaint. TRAVEL OUTSIDE OF THE [place] IN LAST 30 DAYS: No - Related Data Allergies/Adverse Reactions: cephalexin monohydrate [From Keflex] Allergy (Intermediate, Verified 10/24/19 14:11) Rash, swelling Past Medical History Pulmonary Medical History: Reports: Hx Asthma, Hx Bronchitis, Hx Pneumonia Neurological Medical History: Reports: Hx Migraine Renal/ Medical History: Denies: Hx Peritoneal Dialysis Malignancy Medical History: Reports: Hx Cervical Cancer - abnormal cells Musculoskeltal Medical History: Reports Hx Arthritis - degenerative arthritis, Reports Hx Musculoskeletal Deformity, Reports Hx Musculoskeletal Trauma Psychiatric Medical History: Reports: Hx Bipolar Disorder, Hx Depression Past Surgical History: Reports: Hx Appendectomy, Hx Cholecystectomy, Hx Hysterectomy, Hx Orthopedic Surgery - right knee; back; left shoulder, Hx Tonsillectomy - Immunizations Immunizations up to date: Yes Hx Diphtheria, Pertussis, Tetanus Vaccination: Yes Physical Exam - Vital signs Vitals: Temp Pulse Resp BP Pulse Ox 98.4 F 75 20 101/69 100 12/08/19 14:35 12/08/19 14:35 12/08/19 14:35 12/08/19 14:35 12/08/19 14:35 Course - Vital Signs Vital signs: Temp Pulse Resp BP Pulse Ox 98.4 F 75 20 101/69 100 12/08/19 14:35 12/08/19 14:35 12/08/19 14:35 12/08/19 14:35 12/08/19 14:35
[2019-12-08] MEDS ORDERED: ONDANSETRON HCL INJ/PF 4 MG/2 ML SDV IV ONE (16:11)
[2019-12-08] MEDS ORDERED: NORMAL SALINE 1000 ML 1,000 ML IV ONE (16:12)
[2019-12-08] MEDS ORDERED: GUAIFENESIN SYRP 200 MG/10 ML UDC PO ONE (16:12)
--- NOTE | 2019-12-08 16:27 | RADIOLOGY REPORT (SQ) ---
EXAM DESCRIPTION: CHEST SINGLE VIEW IMAGES COMPLETED DATE/TIME: 12/08/2019 4:15 pm REASON FOR STUDY: chest pain COMPARISON: 05/30/2012 EXAM PARAMETERS: NUMBER OF VIEWS: One view. TECHNIQUE: Single frontal radiographic view of the chest acquired. RADIATION DOSE: NA LIMITATIONS: None. FINDINGS: LUNGS AND PLEURA: No opacities, masses or pneumothorax. No pleural effusion. MEDIASTINUM AND HILAR STRUCTURES: No masses. Contour normal. HEART AND VASCULAR STRUCTURES: Heart normal in size. Normal vasculature. BONES: No acute findings. HARDWARE: Left shoulder arthroplasty. OTHER: No other significant finding. IMPRESSION: NO ACUTE RADIOGRAPHIC FINDING IN THE CHEST. TECHNICAL DOCUMENTATION: JOB ID: [id number] 2010 [employer]- All Rights Reserved Reading location - IP/workstation name: [email or web address]
[2019-12-08] MEDS ORDERED: KETOROLAC TROMETHAMINE INJ/PF 30 MG/1 ML SDV IV ONE (16:31)
[2019-12-08] MEDS ORDERED: ACETAMINOPHEN 325 MG TABLET PO ONE (16:31)
--- NOTE | 2019-12-08 16:31 | ER Document Report ---
ED General - General Chief Complaint: Cough Stated Complaint: HEADACHE/DIARRHEA/SORE THROAT/COUGH Time Seen by Provider: 12/08/19 15:18 Mode of Arrival: Ambulatory Information source: Patient Notes: Patient is a 53-year-old female presenting to the emergency department chief complaint of headache for 7 days diarrhea for 2 days generalized malaise and fatigue for about 2 weeks she has had a decreased appetite cough and congestion. Patient states that she has had a thirdhand exposure to somebody that had coronavirus. Patient states she stopped smoking about 2 years ago. Patient denies any illness prior to this episode. Patient's only prior medical history is asthma. TRAVEL OUTSIDE OF THE [place] IN LAST 30 DAYS: No - HPI Onset: Last week Onset/Duration: Gradual, Persistent, Worse Quality of pain: Achy Severity: Moderate Pain Level: 3 Associated symptoms: Body/muscle aches, Productive cough, Diarrhea, Fever, Headache, Nausea, Shortness of breath, Sore throat Exacerbated by: Movement, Walking, Coughing, Deep breathing Relieved by: Denies Similar symptoms previously: No Recently seen / treated by doctor: No - Related Data Allergies/Adverse Reactions: cephalexin monohydrate [From Keflex] Allergy (Intermediate, Verified 10/24/19 14:11) Rash, swelling Past Medical History - General Information source: Patient - Social History Smoking Status: Former Smoker Chew tobacco use (# tins/day): No Frequency of alcohol use: None Drug Abuse: None Lives with: Family Family History: Reviewed & Not Pertinent Patient has suicidal ideation: No Patient has homicidal ideation: No Pulmonary Medical History: Reports: Hx Asthma, Hx Bronchitis, Hx Pneumonia Neurological Medical History: Reports: Hx Migraine Renal/ Medical History: Denies: Hx Peritoneal Dialysis Malignancy Medical History: Reports: Hx Cervical Cancer - abnormal cells Musculoskeletal Medical History: Reports Hx Arthritis - degenerative arthritis, Reports Hx Musculoskeletal Deformity, Reports Hx Musculoskeletal Trauma Psychiatric Medical History: Reports: Hx Bipolar Disorder, Hx Depression Past Surgical History: Reports: Hx Appendectomy, Hx Cholecystectomy, Hx Hysterectomy, Hx Orthopedic Surgery - right knee; back; left shoulder, Hx Tonsillectomy - Immunizations Immunizations up to date: Yes Hx Diphtheria, Pertussis, Tetanus Vaccination: Yes Hx Pneumococcal Vaccination: 06/24/12 Review of Systems - Review of Systems Constitutional: Chills, Fever, Malaise, Weakness, Recent illness EENT: Nose congestion Cardiovascular: Dyspnea Respiratory: Cough, Short of breath Gastrointestinal: Diarrhea Genitourinary: No symptoms reported Female Genitourinary: No symptoms reported Musculoskeletal: No symptoms reported Skin: No symptoms reported Hematologic/Lymphatic: No symptoms reported Neurological/Psychological: No symptoms reported Physical Exam - Vital signs Vitals: Temp 98.4 F 12/08/19 13:54 - Notes Notes: PHYSICAL EXAMINATION: GENERAL: Patient is a 53-year-old female presenting to the emergency department and moderate distress secondary to shortness of breath cough diarrhea and headache HEAD: Atraumatic, normocephalic. EYES: Pupils equal round and reactive to light, extraocular movements intact, sclera anicteric, conjunctiva are moderately injected ENT: nares patent, oropharynx clear without exudates. Moist mucous membranes. NECK: Normal range of motion, supple without lymphadenopathy, no appreciable JVD LUNGS: Lungs clear to auscultation bilaterally and equal. No wheezes rales or rhonchi. HEART: Regular rate and rhythm without murmurs ABDOMEN: Soft, diffusely tender, normal bowel sounds. No guarding, no rebound. No masses appreciated. EXTREMITIES: Active full range of motion, no pitting or edema. No cyanosis. 2+ pulses x4 NEUROLOGICAL: At time of evaluation the patient is alert and oriented x3, Glascow coma scale of 15, cranial nerves II through XII are grossly intact, with the exception of headache, sensations intact, motor is intact, there are no s igns of nystagmus, there is no pronator drift, there is no facial asymmetry, tongue protrusion is midline, reflexes are equal and bilateral, patient ambulates without ataxia, patient answers all questions appropriately follows commands appropriately. SKIN: Warm, Dry, and intact. Normal turgor, no rashes or lesions noted. Course - Re-evaluation Re-evalutation: 12/08/19 18:53 She has been reevaluated several times while in emergency department patient has remained stable without signs of decompensation. Patient did receive IV normal saline bolus 1 L guaifenesin 200 mg p.o. Toradol 30 mg IV acetaminophen 975 mg p.o. and Zofran 4 mg IV. The patient has improved is not coughing quite is frequently or violently. I did review the laboratory and EKG and radiologic results with the patient I advised her that all that we have seen so far is negative her coronavirus test is still pending. Patient will be discharged home with a prescription for Zyrtec, guaifenesin and Hycodan. 12/08/19 18:54 Patient is recommended to follow-up with primary care physician and stay quarantined until results of her coronavirus test. - Vital Signs Vital signs: Temp Pulse Resp BP Pulse Ox 98.4 F 75 20 101/69 100 12/08/19 14:35 12/08/19 14:35 12/08/19 14:35 12/08/19 14:35 12/08/19 14:35 - Laboratory Result Diagrams: 12/08/19 15:50 12/08/19 15:50 Laboratory results interpreted by me: 12/08/19 15:50 Urine Blood SMALL H - Diagnostic Test Radiology reviewed: Reports reviewed - EKG Interpretation by Me EKG shows normal: Sinus rhythm Rate: Normal Rhythm: NSR When compared to previous EKG there are: Previous EKG unavailable Discharge - Discharge Clinical Impression: Cough Diarrhea Qualifiers: Diarrhea type: unspecified type Qualified Code(s): R19.7 - Diarrhea, unspecified Headache Qualifiers: Headache type: unspecified Headache chronicity pattern: acute headache Intractability: not intractable Qualified Code(s): R51 - Headache Condition: Stable Disposition: HOME, SELF-CARE Additional Instructions: Viral Syndrome The physician has diagnosed a viral infection. Viruses not only cause "colds," but can cause many different symptoms including generalized aching, fever, headache, cough, diarrhea, nausea, vomiting, and fatigue. The treatment, for the most part, is simply relief of symptoms. This means that antibiotics are usually not given. Rest, fluids, pain medications and, occasionally, medication for the specific symptoms that are most bothersome will be prescribed. Use good handwashing to avoid passing the virus to others. Shared toys should be cleaned with disinfectant. Clean the toilets, sinks, and counter surfaces in bathrooms. Launder clothing in hot water. Contact the physician if you develop any new or unusual symptoms such as severe headache, stiff neck, high fever, chest pain, productive cough, or shortness of breath. You should be rechecked if you don't see marked improvement within seven to 10 days.Cough Suppressant/Expectorant Medication You are to use a cough medication as needed for relief of symptoms. This medicine is a combination of an expectorant (to make the mucous thinner and more easily "coughed up") and a cough suppressant (to reduce the frequency of coughing). The cough-suppressant medicine is related to narcotics. You may experience mild nausea and sleepiness. Some patients who are very sensitive to narcotics may have stomach pain from this medicine. Taking the medicine with food reduces these side effects. Do not drive or work with machinery until you know how this medicine affects you. The expectorant should have no side effects. Iodine-containing expectorants (such as organidin) should not be taken by persons with active thyroid disease unless approved by your doctor. Call the doctor if you develop shortness of breath, hives, rash, itching, lightheadedness, or severe nausea and vomiting. Prescriptions: Hydrocodone Bit/Homatropine [Hycodan Syrup 5-1.5 mg/5 ml Ud Cup] 5 ml PO Q4HP PRN #120 ml PRN Reason: Guaifenesin [Adult Tussin Chest Congestion] 100 mg PO Q6 #120 liquid Cetirizine HCl [Zyrtec 10 mg Tablet] 10 mg PO DAILY #10 tablet
[2019-12-08 17:09] LABS: APPEARANCE,URINE CLEAR; BILIRUBIN,URINE NEGATIVE (NEGATIVE); COLOR,URINE YELLOW; GLUCOSE, URINE NEGATIVE (NEGATIVE); KETONES,URINE NEGATIVE (NEGATIVE); LEUKOCYTE ESTERASE,URINE NEGATIVE (NEGATIVE); NITRITE,URINE NEGATIVE (NEGATIVE); PROTEIN,URINE NEGATIVE (NEGATIVE); URINE SPECIFIC GRAVITY 1.023; UROBILINOGEN,URINE NEGATIVE mg/dL (<2.0)
[2019-12-08 17:10] LABS: ABSOLUTE BASOPHILS # (AUTO) 0.1 10^3/uL (0.0-0.2); ABSOLUTE EOSINOPHILS # (AUTO) 0.3 10^3/uL (0.0-0.6); ABSOLUTE LYMPHOCYTES (AUTO) 3.9 10^3/uL (0.5-4.7); ABSOLUTE MONOCYTES (AUTO) 0.7 10^3/uL (0.1-1.4); ABSOLUTE NEUT (AUTO) 3.8 10^3/uL (1.7-8.2); BASOPHILS % (AUTO) 0.7 % (0-2); EOSINOPHILS % (AUTO) 2.9 % (0-6); HEMATOCRIT 40.6 % (36.0-47.0); HEMOGLOBIN 14.1 g/dL (12.0-15.5); LYMPHOCYTES % (AUTO) 44.5 % (13-45); MEAN CORPUSCULAR HEMOGLOBIN 29.4 pg (27.0-33.4); MEAN CORPUSCULAR HGB CONC 34.7 g/dL (32.0-36.0); MEAN CORPUSCULAR VOLUME 85 fl (80-97); MONOCYTES % (AUTO) 8.2 % (3-13); PLATELET COUNT 240 10^3/uL (150-450); RED BLOOD COUNT 4.77 10^6/uL (3.72-5.28); RED CELL DISTRIBUTION WIDTH 13.2 % (11.5-14.0); SEGMENTED NEUTROPHILS % (AUTO) 43.7 % (42-78); TOTAL CELLS COUNTED % (AUTO) 100 %; WHITE BLOOD COUNT 8.8 10^3/uL (4.0-10.5)
[2019-12-08 17:20] LABS: A TYPE INFLUENZA AG NEGATIVE (NEGATIVE); B INFLUENZA AG NEGATIVE (NEGATIVE)
[2019-12-08 17:35] LABS: ALBUMIN 4.4 g/dL (3.5-5.0); ALKALINE PHOSPHATASE 101 U/L (38-126); ANION GAP 10 (5-19); ASPARTATE AMINO TRANSFERASE 24 U/L (14-36); BILIRUBIN,TOTAL 0.4 mg/dL (0.2-1.3); BLOOD UREA NITROGEN 20 mg/dL (7-20); CALCIUM 8.9 mg/dL (8.4-10.2); CARBON DIOXIDE 25 mmol/L (22-30); CHLORIDE 106 mmol/L (98-107); GLUCOSE 90 mg/dL (75-110); POTASSIUM 4.2 mmol/L (3.6-5.0); TOTAL PROTEIN 7.8 g/dL (6.3-8.2)
[2019-12-08 19:08] VITALS: BP 99/67
--- NOTE | 2019-12-09 14:07 | EKG REPORT ---
SEVERITY:- NORMAL ECG - SINUS RHYTHM : Confirmed by: Maisha Nunes 09-Dec-2019 14:06:26
== END 2019-12-08 19:13 | disposition home or self-care (01) ==
LOC: ER 13:53
DX: R51 Headache (principal); R19.7 Diarrhea, unspecified; R53.81 Other malaise; R53.83 Other fatigue; M79.10 Myalgia, unspecified site; R05 Cough; R06.02 Shortness of breath; J02.9 Acute pharyngitis, unspecified; R11.0 Nausea; R53.1 Weakness; R09.81 Nasal congestion; J45.909 Unspecified asthma, uncomplicated; Z87.01 Personal history of pneumonia (recurrent); Z87.891 Personal history of nicotine dependence; Z88.1 Allergy status to other antibiotic agents; Z20.828 Contact with and (suspected) exposure to other viral communicable diseases
CPT/HCPCS: 93005; 99285; 96361; 96374; 96375; 36415; 87070; 87880; 85025; 87635; 80053; 81001; 84484; 87804; 71045; 93010; J1885; J2405; J7030; C9803

== ENCOUNTER 2019-12-30 12:42 | Emergency (ER) | payer SELFPAY ==
[2019-12-30 13:07] VITALS: BP 109/77
[2019-12-30] MEDS ORDERED: DICYCLOMINE HCL 20 MG TABLET PO ONE (14:06)
--- NOTE | 2019-12-30 14:42 | RADIOLOGY REPORT (SQ) ---
EXAM DESCRIPTION: CHEST SINGLE VIEW IMAGES COMPLETED DATE/TIME: 12/30/2019 2:26 pm REASON FOR STUDY: cough COMPARISON: 12/08/2019 NUMBER OF VIEWS: One view. TECHNIQUE: Single frontal radiographic view of the chest acquired. LIMITATIONS: None. FINDINGS: LUNGS AND PLEURA: No opacities, masses or pneumothorax. No pleural effusion. MEDIASTINUM AND HILAR STRUCTURES: No masses. Contour normal. HEART AND VASCULAR STRUCTURES: Heart normal in size. Normal vasculature. BONES: No acute findings. HARDWARE: None in the chest. OTHER: No other significant finding. IMPRESSION: NO SIGNIFICANT RADIOGRAPHIC FINDING IN THE CHEST. TECHNICAL DOCUMENTATION: JOB ID: [id number] 2010 [employer]- All Rights Reserved Reading location - IP/workstation name: [email or web address]
[2019-12-30 15:35] LABS: APPEARANCE,URINE SLIGHTLY-CLOUDY; BILIRUBIN,URINE NEGATIVE (NEGATIVE); COLOR,URINE YELLOW; GLUCOSE, URINE NEGATIVE (NEGATIVE); KETONES,URINE NEGATIVE (NEGATIVE); LEUKOCYTE ESTERASE,URINE NEGATIVE (NEGATIVE); NITRITE,URINE NEGATIVE (NEGATIVE); PROTEIN,URINE NEGATIVE (NEGATIVE); URINE SPECIFIC GRAVITY 1.029; UROBILINOGEN,URINE NEGATIVE mg/dL (<2.0)
[2019-12-30 15:44] LABS: A TYPE INFLUENZA AG NEGATIVE (NEGATIVE); B INFLUENZA AG NEGATIVE (NEGATIVE)
[2019-12-30] MEDS ORDERED: ONDANSETRON 4 MG TAB.RAPDIS PO ONE (16:56)
[2019-12-30] MEDS ORDERED: SULFAMETHOXAZOLE/TRIMETHOPRIM 800-160 MG TABLET PO ONE (16:57)
--- NOTE | 2019-12-30 17:03 | ER Document Report ---
HPI - HPI Time Seen by Provider: 12/30/19 13:07 Pain Level: Denies Context: Patient is a 54-year-old female who presents to the emergency department with a chief complaint of abdominal pain, diarrhea, and generally not feeling well. Patient has been taking care of her grandson, who has upper respiratory symptoms. - ROS Systems Reviewed and Negative: Yes All other systems reviewed and negative - CONSTITUTIONAL Constitutional: DENIES: Fever, Chills - EENT EENT: REPORTS: Congestion. DENIES: Sore Throat, Ear Pain, Nasal Drainage-Clear, Nasal Drainage-Purulent, Eye problems - NEURO Neurology: REPORTS: Headache - RESPIRATORY Respiratory: REPORTS: Coughing - GASTROINTESTINAL Gastrointestinal: REPORTS: Abdominal Pain - upper, Nausea. DENIES: Patient vomiting - URINARY Urinary: REPORTS: Dysuria - REPRODUCTIVE Reproductive: DENIES: : - MUSCULOSKELETAL Musculoskeletal: DENIES: Extremity pain - DERM Skin Color: Normal Skin Problems: None Past Medical History - Social History Smoking Status: Former Smoker Frequency of alcohol use: None Drug Abuse: None Family History: Reviewed & Not Pertinent Patient has homicidal ideation: No Pulmonary Medical History: Reports: Hx Asthma, Hx Bronchitis, Hx Pneumonia Neurological Medical History: Reports: Hx Migraine Renal/ Medical History: Denies: Hx Peritoneal Dialysis Malignancy Medical History: Reports: Hx Cervical Cancer - abnormal cells Musculoskeletal Medical History: Reports Hx Arthritis - degenerative arthritis, Reports Hx Musculoskeletal Deformity, Reports Hx Musculoskeletal Trauma Psychiatric Medical History: Reports: Hx Bipolar Disorder, Hx Depression Past Surgical History: Reports: Hx Appendectomy, Hx Cholecystectomy, Hx Hysterectomy, Hx Orthopedic Surgery - right knee; back; left shoulder, nannette carpal tunnel, Hx Tonsillectomy - Immunizations Immunizations up to date: Yes Hx Diphtheria, Pertussis, Tetanus Vaccination: Yes Hx Pneumococcal Vaccination: 06/24/12 Vertical Provider Document - CONSTITUTIONAL Agree With Documented VS: Yes Exam Limitations: No Limitations General Appearance: No Apparent Distress - INFECTION CONTROL TRAVEL OUTSIDE OF THE [place] IN LAST 30 DAYS: No - HEENT HEENT: Atraumatic, Normocephalic, PERRLA - NECK Neck: Normal Inspection - RESPIRATORY Respiratory: Breath Sounds Normal, No Respiratory Distress - CARDIOVASCULAR Cardiovascular: Regular Rate, Regular Rhythm Pulses: Normal: Radial - GI/ABDOMEN Gastrointestinal: Abdomen Soft, Abdomen Tender - Periumbilical area - MUSCULOSKELETAL/EXTREMETIES Musculoskeletal/Extremeties: FROM - NEURO Level of Consciousness: Awake, Alert, Appropriate Motor/Sensory: No Motor Deficit, No Sensory Deficit - DERM Integumentary: Warm, Dry, No Rash Course - Re-evaluation Re-evalutation: 12/30/19 17:04 Chest x-ray was unremarkable. No evidence of pneumonia noted. Patient refused her blood work. Influenza is negative and rapid strep is also negative. The patient was evaluated during the global COVID-19 pandemic and that diagnosis was suspected/considered upon their initial presentation. Their evaluation, treatment and testing was consistent with current guidelines for patients who present with complaints or symptoms that may be related to COVID-19. Patient has a moderate amount of blood in her urine. Patient stated that she felt she had foul-smelling urine the other day. She states that she has been drinking plenty of water. Will place the patient on a course of ciprofloxacin to help with urinary tract infection and possible pyelonephritis as the patient also has abdominal pain. She states that the Bentyl did not help her with her abdominal pain. We will give her ciprofloxacin and Zofran to help. - Vital Signs Vital signs: Temp Pulse Resp BP Pulse Ox 98.9 F 88 20 109/77 100 12/30/19 13:06 12/30/19 13:06 12/30/19 13:06 12/30/19 13:06 12/30/19 13:06 - Laboratory Laboratory results interpreted by me: 12/30/19 14:30 Urine Blood MODERATE H Discharge - Discharge Clinical Impression: Suspected COVID-19 virus infection Hematuria Qualifiers: Hematuria type: gross Qualified Code(s): R31.0 - Gross hematuria Urinary tract infection Qualifiers: Urinary tract infection type: site unspecified Hematuria presence: with hematuria Qualified Code(s): N39.0 - Urinary tract infection, site not specified Abdominal pain Qualifiers: Abdominal location: generalized Qualified Code(s): R10.84 - Generalized abdominal pain Diarrhea Qualifiers: Diarrhea type: unspecified type Qualified Code(s): R19.7 - Diarrhea, unspecified Condition: Stable Disposition: HOME, SELF-CARE Additional Instructions: You were seen today in the emergency department for abdominal pain. Your urine showed that you had blood in it. You are being treated for urinary tract infection. Please take antibiotics as prescribed. Your other tests were normal. You were also tested for COVID-19. Please stay in quarantine until your results are back. The health department will call you with your results. Prescriptions: Ciprofloxacin HCl [Cipro 500 mg Tablet] 500 mg PO BID 7 Days #14 tablet Metoclopramide HCl [Reglan 10 mg Tablet] 1 - 2 tab PO ASDIR PRN #25 tablet PRN Reason: Referrals: [facility] [Provider Group] - Follow up as needed [facility] [Provider Group] - Follow up as needed
== END 2019-12-30 17:58 | disposition home or self-care (01) ==
LOC: ER 12:42
DX: N39.0 Urinary tract infection, site not specified (principal); R31.0 Gross hematuria; R10.84 Generalized abdominal pain; R19.7 Diarrhea, unspecified; R51 Headache; R11.0 Nausea; Z20.828 Contact with and (suspected) exposure to other viral communicable diseases
CPT/HCPCS: 99284; 87070; 87086; 87880; 87635; 87077; 81001; 87804; 71045; J3490; S0119; C9803

== ENCOUNTER 2020-02-06 16:50 | Emergency (ER) | payer SELFPAY ==
--- NOTE | 2020-02-06 17:51 | RADIOLOGY REPORT (SQ) ---
EXAM DESCRIPTION: CHEST SINGLE VIEW IMAGES COMPLETED DATE/TIME: 02/06/2020 5:39 pm REASON FOR STUDY: bed 12 chest pain COMPARISON: None. EXAM PARAMETERS: NUMBER OF VIEWS: One view. TECHNIQUE: Single frontal radiographic view of the chest acquired. RADIATION DOSE: NA LIMITATIONS: None. FINDINGS: LUNGS AND PLEURA: No opacities, masses or pneumothorax. No pleural effusion. MEDIASTINUM AND HILAR STRUCTURES: No masses. Contour normal. HEART AND VASCULAR STRUCTURES: Heart normal in size. Normal vasculature. BONES: No acute findings. HARDWARE: Left shoulder prosthesis OTHER: No other significant finding. IMPRESSION: NO ACUTE RADIOGRAPHIC FINDING IN THE CHEST. TECHNICAL DOCUMENTATION: JOB ID: [id number] 2010 [employer] All Rights Reserved Reading location - IP/workstation name: [email or web address]
[2020-02-06 18:15] LABS: ABSOLUTE BASOPHILS # (AUTO) 0.1 10^3/uL (0.0-0.2); ABSOLUTE EOSINOPHILS # (AUTO) 0.3 10^3/uL (0.0-0.6); ABSOLUTE LYMPHOCYTES (AUTO) 3.6 10^3/uL (0.5-4.7); ABSOLUTE MONOCYTES (AUTO) 0.7 10^3/uL (0.1-1.4); ABSOLUTE NEUT (AUTO) 3.9 10^3/uL (1.7-8.2); BASOPHILS % (AUTO) 0.8 % (0-2); EOSINOPHILS % (AUTO) 3.9 % (0-6); HEMATOCRIT 41.9 % (36.0-47.0); HEMOGLOBIN 14.5 g/dL (12.0-15.5); LYMPHOCYTES % (AUTO) 41.9 % (13-45); MEAN CORPUSCULAR HEMOGLOBIN 29.4 pg (27.0-33.4); MEAN CORPUSCULAR HGB CONC 34.7 g/dL (32.0-36.0); MEAN CORPUSCULAR VOLUME 85 fl (80-97); MONOCYTES % (AUTO) 8.2 % (3-13); PLATELET COUNT 258 10^3/uL (150-450); RED BLOOD COUNT 4.95 10^6/uL (3.72-5.28); RED CELL DISTRIBUTION WIDTH 13.8 % (11.5-14.0); SEGMENTED NEUTROPHILS % (AUTO) 45.2 % (42-78); TOTAL CELLS COUNTED % (AUTO) 100 %; WHITE BLOOD COUNT 8.5 10^3/uL (4.0-10.5)
[2020-02-06 18:30] LABS: ALBUMIN 4.6 g/dL (3.5-5.0); ALKALINE PHOSPHATASE 113 U/L (38-126); ANION GAP 11 (5-19); ASPARTATE AMINO TRANSFERASE 29 U/L (14-36); BILIRUBIN,DIRECT 0.3 mg/dL (0.0-0.4); BILIRUBIN,TOTAL 0.6 mg/dL (0.2-1.3); BLOOD UREA NITROGEN 21 mg/dL (7-20); CALCIUM 9.4 mg/dL (8.4-10.2); CARBON DIOXIDE 25 mmol/L (22-30); CHLORIDE 106 mmol/L (98-107); GLUCOSE 87 mg/dL (75-110); POTASSIUM 4.5 mmol/L (3.6-5.0); TOTAL PROTEIN 7.8 g/dL (6.3-8.2)
--- NOTE | 2020-02-06 18:38 | ER Document Report ---
ED General - General TRAVEL OUTSIDE OF THE [place] IN LAST 30 DAYS: No <KAI GOLDSMITH - Last Filed: 02/06/20 21:28> <CHRISTEN SANCHEZ - Last Filed: 02/06/20 22:38> - General Chief Complaint: Chest Pain Stated Complaint: CHEST PAIN Time Seen by Provider: 02/06/20 17:38 - HPI Notes: Patient is a 54-year-old female who presents to the emergency department for evaluation of chest pain. She describes a "sharp and squeezing" left-sided chest pain, with occasional radiation into the left arm and into the back. She describes some associated shortness of breath and nausea. She received 1 sublingual nitroglycerin, which she states she thought helped at first, but d enies now that it helped at all. She states she has had pain similar to this in the past, but never this severe, never lasting this long. Patient has not seen a primary care provider in about 2 years, she currently does not have insurance. (KAI GOLDSMITH) - Related Data Allergies/Adverse Reactions: cephalexin monohydrate [From Keflex] Allergy (Intermediate, Verified 12/30/19 13:49) Rash, swelling bee venom protein (honey bee) Allergy (Verified 12/30/19 13:49) Past Medical History - General Information source: Patient - Social History Smoking Status: Former Smoker Chew tobacco use (# tins/day): No Frequency of alcohol use: None Drug Abuse: None Family History: CAD, Other - Psychiatric disorders Patient has homicidal ideation: No Pulmonary Medical History: Reports: Hx Asthma, Hx Bronchitis, Hx Pneumonia Neurological Medical History: Reports: Hx Migraine, Other - Cluster headaches Renal/ Medical History: Denies: Hx Peritoneal Dialysis Malignancy Medical History: Reports: Hx Cervical Cancer - abnormal cells Musculoskeletal Medical History: Reports Hx Arthritis - degenerative arthritis, Reports Hx Musculoskeletal Deformity, Reports Hx Musculoskeletal Trauma Psychiatric Medical History: Reports: Hx Bipolar Disorder, Hx Depression Past Surgical History: Reports: Hx Abdominal Surgery - Multiple laparoscopies secondary to PID, Hx Appendectomy, Hx Cholecystectomy, Hx Hysterectomy, Hx Orthopedic Surgery - right knee; back; left shoulder, Hx Tonsillectomy - Immunizations Immunizations up to date: Yes Hx Diphtheria, Pertussis, Tetanus Vaccination: Yes Hx Pneumococcal Vaccination: 06/24/12 <KAI GOLDSMITH - Last Filed: 02/06/20 21:28> Review of Systems - Review of Systems Constitutional: No symptoms reported EENT: No symptoms reported Cardiovascular: See HPI Respiratory: See HPI Gastrointestinal: No symptoms reported Genitourinary: No symptoms reported Musculoskeletal: No symptoms reported Skin: No symptoms reported Neurological/Psychological: No symptoms reported -: Yes All other systems reviewed and negative <KAI GOLDSMITH - Last Filed: 02/06/20 21:28> Physical Exam <KAI GOLDSMITH - Last Filed: 02/06/20 21:28> - Vital signs Vitals: Temp 98.5 F 02/06/20 16:50 - Notes Notes: Vital signs reviewed, please refer to chart. Head is normocephalic, atraumatic. Pupils equal round, reactive to light. Neck is supple without meningismus. Heart is regular rate and rhythm. Lungs are clear to auscultation bilaterally. Abdomen is soft, nontender, normoactive bowel sounds throughout. Extremities without cyanosis, clubbing. Posterior calves are nontender. Peripheral pulses are equal. Skin is warm and dry. Patient is awake, alert, neurological exam is nonfocal. (KAI GOLDSMITH) Course - Laboratory Result Diagrams: 02/06/20 18:00 02/06/20 18:00 - Diagnostic Test Radiology reviewed: Reports reviewed <KAI GOLDSMITH - Last Filed: 02/06/20 21:28> - Laboratory Result Diagrams: 02/06/20 18:00 02/06/20 18:00 <CHRISTEN SANCHEZ - Last Filed: 02/06/20 22:38> - Re-evaluation Re-evalutation: 02/06/20 18:34 Patient presents to the emergency department for evaluation. She complains of chest pain. It intermittently radiates into the back. She was placed on a surveillance monitor, IV was established, laboratory investigations were obtained. Patient's EKG is unremarkable. Her first troponin is pending at this time. I am concerned, however, about the possibility of dissection in this patient complaining of a sharp and stabbing pain, intermittently screaming out during my exam. Patient is currently stable, we will continue to monitor. 02/06/20 21:[address] angiogram failed to show any signs of aortic dissection. Her first set of cardiac enzymes is unremarkable. She has had intermittent sharp and stabbing pain but actually states she feels much more comfortable. She looks much more comfortable on exam. Her peripheral pulses are still equal. At this point, lab was just able to draw her second troponin. I fully expect this to be undetectable. Patient will likely be discharged with close follow-up with primary care. She is to return to the ED with worsening. (KAI GOLDSMITH) 02/06/20 22:37 Received patient in signout. Repeat troponin is negative. Urine does not suggest UTI. I went and updated the patient on the results. Advised her to have close follow-up with her primary care doctor. Return precautions given, stable at time of discharge. (CHRISTEN SANCHEZ) - Vital Signs Vital signs: Temp Pulse Resp BP Pulse Ox 98.0 F 15 104/76 100 02/06/20 20:32 02/06/20 21:15 02/06/20 21:15 02/06/20 21:15 - Laboratory Laboratory results interpreted by me: 02/06/20 02/06/20 18:00 18:00 BUN 21 H Urine Blood SMALL H Ur Leukocyte Esterase TRACE H - Diagnostic Test Radiology results interpreted by me: 02/06/20 21:30 Chest X-Ray 02/06/20 16:56 IMPRESSION: NO ACUTE RADIOGRAPHIC FINDING IN THE CHEST. Chest/Abdomen CTA 02/06/20 18:29 IMPRESSION: No evidence for dissection. (KAI GOLDSMITH) - EKG Interpretation by Me Additional EKG results interpreted by me: 02/06/20 18:38 Sinus mechanism with a rate of 65 bpm. Normal axis and intervals. No acute ST changes concerning for ischemia or infarction. (KAI GOLDSMITH) Discharge <KAI GOLDSMITH - Last Filed: 02/06/20 21:28> <CHRISTEN SANCHEZ - Last Filed: 02/06/20 22:38> - Discharge Clinical Impression: Chest pain Qualifiers: Chest pain type: unspecified Qualified Code(s): R07.9 - Chest pain, unspecified Condition: Stable Disposition: HOME, SELF-CARE Instructions: Chest Pain of Unclear Cause ([facility]) Additional Instructions: No clear cause was identified for your chest pain today. Your EKG was normal. Your CT scan was normal. Your blood work is normal. Please follow-up closely with your primary care provider. Return to the emergency department worsening or new concerning symptoms of any sort.
--- NOTE | 2020-02-06 19:20 | RADIOLOGY REPORT (SQ) ---
EXAM DESCRIPTION: CTA CHEST IMAGES COMPLETED DATE/TIME: 02/06/2020 7:07 pm REASON FOR STUDY: eval for dissection COMPARISON: None. TECHNIQUE: CT scan of the chest performed using helical scanning technique with dynamic intravenous contrast injection. Images reviewed with lung, soft tissue and bone windows. Reconstructed coronal and sagittal MPR images reviewed. Additional 3 dimensional post-processing performed to develop Maximal Intensity Projection images (CT P). All images stored on PACS. All CT scanners at this facility use dose modulation, iterative reconstruction, and/or weight based d osing when appropriate to reduce radiation dose to as low as reasonably achievable (ALARA). [facility]: Dose Right [facility]: CareDose [facility]: Dose Right [facility]: Teradose 4D [facility]: [employer] [place] CONTRAST TYPE AND DOSE: contrast/concentration: Isovue 350.00 mmol/ml; Total Contrast Delivered: 75. 0 ml; Total Saline Delivered: 69.0 ml Contrast bolus optimized for the aorta RENAL FUNCTION: GFR > 60. RADIATION DOSE: CT Rad equipment meets quality standard of care and radiation dose reduction techniq ues were employed. CTDIvol: 13.2 - 22.4 mGy. DLP: 840 mGy-cm. . LIMITATIONS: None. FINDINGS: LUNGS AND PLEURA: No masses, infiltrates, or pneumothorax. No pleural effusions or pleura l calcifications. AORTA AND GREAT VESSELS: No aneurysm. No dissection. HEART: No pericardial effusion. No significant coronary artery calcifications. PULMONARY ARTERIES: No emboli visualized in the main pulmonary arteries or the segmental branches. HILAR AND MEDIASTINAL STRUCTURES: No identified masses or abnormal nodes. HARDWARE: None in the chest. UPPER ABDOMEN: No significant findings. Limited exam. THYROID AND OTHER SOFT TISSUES: No masses. No adenopathy. BONES: No acute or significant finding. 3D MIPS: Confirm above findings. OTHER: No other significant finding. IMPRESSION: No evidence for dissection. COMMENT: Quality ID # [id number]: Final reports with documentation of one or more dose reduction techniques (e.g., Automated exposure control, adjustment of the mA and/or kV according to patient size, use of iterative reconstruction technique) TECHNICAL DOCUMENTATION: JOB ID: [id number] 2010 [employer]- All Rights Reserved Reading location - IP/workstation name: [email or web address]
--- NOTE | 2020-02-06 21:24 | EKG REPORT ---
SEVERITY:- NORMAL ECG - SINUS RHYTHM : Confirmed by: Konrad Alvares MD 06-Feb-2020 21:23:37
[2020-02-06] MEDS ORDERED: OXYCODONE-ACETAMINOPHEN 5-325 MG TABLET PO ONE (21:40)
[2020-02-06 22:02] LABS: APPEARANCE,URINE CLEAR; BILIRUBIN,URINE NEGATIVE (NEGATIVE); COLOR,URINE STRAW; GLUCOSE, URINE NEGATIVE (NEGATIVE); KETONES,URINE NEGATIVE (NEGATIVE); LEUKOCYTE ESTERASE,URINE TRACE (NEGATIVE); NITRITE,URINE NEGATIVE (NEGATIVE); PROTEIN,URINE NEGATIVE (NEGATIVE); URINE SPECIFIC GRAVITY 1.006; UROBILINOGEN,URINE NEGATIVE mg/dL (<2.0)
[2020-02-06 23:00] VITALS: BP 100/69
== END 2020-02-06 22:59 | disposition home or self-care (01) ==
LOC: ER 16:50
DX: R07.9 Chest pain, unspecified (principal); M79.602 Pain in left arm; M54.9 Dorsalgia, unspecified; R06.02 Shortness of breath; R11.0 Nausea; Z79.899 Other long term (current) drug therapy; Z88.1 Allergy status to other antibiotic agents; Z87.891 Personal history of nicotine dependence
CPT/HCPCS: 36415; 71045; 71275; 80053; 81001; 84484; 85025; 93005; 93010; 99285